=== PATIENT | male | born 1955 | race Caucasian/White ===

== ENCOUNTER 2018-05-27 02:57 | Observation (INO) ==
[2018-05-27] MEDS ORDERED: Morphine Inj 4 MG/ML Vial IV.PUSH ONE (03:27)
[2018-05-27] MEDS ORDERED: Sod Chloride 0.9% Inj 1,000 ML IV.CONT SCH ×2 (03:30→06:00)
[2018-05-27 03:38] LABS: Baso % (Auto) 0.4 % (0.0-2.0); Eos # (Auto) 0.1 th/mm3 (0.0-0.4); Eos % (Auto) 1.3 % (0.0-4.0); Hematocrit 43.4 % (39.0-51.0); Hemoglobin 14.6 gm/dL (13.0-17.0); Lymph # (Auto) 1.3 th/mm3 (1.0-4.8); Lymph % (Auto) 18.9 % (9.0-44.0); Mean Corpuscular HGB Conc 33.7 % (32.0-36.0); Mean Corpuscular Hemoglobin 30.3 pg (27.0-34.0); Mean Corpuscular Volume 89.9 fL (80.0-100.0); Mean Platelet Volume 8.1 fL (7.0-11.0); Mono # (Auto) 0.8 th/mm3 (0.0-0.9); Mono % (Auto) 11.2 % (0.0-8.0); Neut # (Auto) 4.9 th/mm3 (1.8-7.7); Neut % (Auto) 68.2 % (16.0-70.0); Platelet Count 186 th/mm3 (150-450); Red Blood Count 4.82 mil/mm3 (4.50-5.90); Red Cell Distribution Width 13.2 % (11.6-17.2); White Blood Count 7.1 th/mm3 (4.0-11.0)
[2018-05-27] MEDS ORDERED: HYDROmorphone PF Inj 2 MG/ML Vial IV.PUSH ONE (03:46)
[2018-05-27 03:47] LABS: Potassium 4.2 meq/L (3.5-5.1)
[2018-05-27 03:50] LABS: Carbon Dioxide 28.9 meq/L (21.0-32.0)
--- NOTE | 2018-05-27 03:56 | ED ---
HPI General Chief complaint: Urogenital-Male Stated complaint: hx kidney stone x 1 hr pain Source: patient and family Mode of arrival: ambulatory Limitations: no limitations History of Present Illness HPI Narrative: 62-year-old male presents to the emergency department by private transportation in the care of her spouse for complaint of severe left flank pain radiating to the left groin. Patient has known history of kidney stones. Patient was evaluated with CAT scan approximately 1 month ago at the recommendation of his urologist Dr. Dubose. Patient was seen by his urologist yesterday and told that his stones were stable although they had not moved and that he still had a 6 mm stone in patient has been doing well and remaining a symptom department he started having left flank pain which is progressively worsened. Pain is 10/10 intensity with nausea. Patient complains of severe pain has not noted hematuria has had no fever chills. Patient does have history of cardiac disease with previous stent placement as well as atrial fibrillation and Eliquis therapy. Patient also has history of hypertension dyslipidemia and thyroid dysfunction. Patient does not report any increased bruising or bleeding. Patient last took Eliquis Saturday morning. Patient denies any other concerns or complaints. MD Complaint: other (flank pain) Onset (ago): hour(s) Duration: constant Location: left flank Radiation: abdomen (LLQ) Severity: severe Quality: aching and dull Relieving factors: none Exacerbating factors: none other (kidney stones) Reports nausea/vomiting Related Data Sexually active: No Home Medications Medication Instructions Recorded Confirmed aspirin [Aspirin Childrens] 81 mg PO DAILY 05/27/18 05/27/18 levothyroxine 137 mcg PO DAILY 05/27/18 05/27/18 lisinopril 10 mg PO DAILY 05/27/18 05/27/18 metoprolol succinate 50 mg PO DAILY 05/27/18 05/27/18 rosuvastatin [Crestor] 40 mg PO DAILY 05/27/18 05/27/18 Allergies Allergy/AdvReac Type Severity Reaction Status Date / Time No Known Allergies Allergy Verified 05/27/18 03:22 Review of Systems ROS: all other systems reviewed are negative PMFSH History History Provided By: Patient (cad stents x 4 xarelto therapy kidney stones hypothyroid ds htn dyslipidemia) and Family Member Social History Social History Smoking Status: Never smoker How Often Do You Have a Drink Containing Alcohol: Never Recent Travel in [place] within the Last 8 Weeks: No Recent Out of Country Travel within the Last 8 Weeks: No Immunization History Tetanus Immunization: <5 Years Exam Narrative Exam Narrative: GENERAL: Well-nourished, well-developed patient. SKIN: Focused skin assessment warm/dry. HEAD: Normocephalic. EYES: No scleral icterus. No injection or drainage. NECK: Supple, trachea midline. No JVD or lymphadenopathy. CARDIOVASCULAR: Regular rate and rhythm without murmurs, gallops, or rubs. RESPIRATORY: Breath sounds equal bilaterally. No accessory muscle use. GASTROINTESTINAL: Abdomen soft, non-tender, nondistended. MUSCULOSKELETAL: No cyanosis, or edema. BACK: Nontender without obvious deformity. Left CVA tenderness. Course Reevaluation(s) Reevaluation #1: Patient's pain has decreased from 10/10 in intensity to 7/10 in intensity after morphine sulfate 3 mg IV and Dilaudid 1 mg IV along with Zofran 4 mg IV and IV fluid bolus; CT kidney stone protocol as identified left- sided 11 mm proximal UPJ stone as well as large 11 mm stone in the left kidney and smaller stone. Patient's case has been discussed with on-call urologist Dr. Villegas who request patient to be admitted to medicine service with consult to him and for the patient be kept n.p.o. for procedural intervention this morning. Case discussed with on-call medicine physician Dr. Baez who will accept patient for admission and consult will be placed to Dr. Villegas. Patient is kept n.p.o. Time: 05:57 Consultations Consultation #1: Dr Ira Villegas --urology; Dr Baez -- [facility] Initial Documented Vital Signs Temperature 98.1 F 05/27/18 03:07 Pulse Rate 58 L 05/27/18 03:07 Respiratory Rate 16 05/27/18 03:07 Blood Pressure 169/96 H 05/27/18 03:07 Pulse Oximetry 96 05/27/18 03:07 Last Documented Vital Signs Temperature 98.1 F 05/27/18 03:07 Pulse Rate 58 L 05/27/18 03:07 Respiratory Rate 16 05/27/18 03:07 Blood Pressure 169/96 H 05/27/18 03:07 Pulse Oximetry 96 05/27/18 03:07 Discharge Plan Discharge Disposition Patient Disposition: 30 Still Patient Discharge Condition Condition: Stable Discharge Details Diagnosis: Ureterolithiasis, Hydronephrosis concurrent with and due to calculi of kidney and ureter Physicians Team ED Provider: Yeimy Kearney Primary Care Provider: Sergey Cevallos Attending Provider: Radha Baez Status ED Status: Admitted Observation Patient Medical Decision Making MDM Narrative Medical decision making narrative: 62-year-old male with known history of stones presents for complaint of intractable left flank pain 10/10 intensity. Patient placed on monitor IV access obtained specimens collections of resulting CT abdomen pelvis kidney stone protocol ordered patient administered morphine sulfate 3 mg IV Pain remains unremitting given Dilaudid 1 mg IV Lab values grossly within normal range except for renal insufficiency BUN of 26 and creatinine of 1.70; CT abdomen and pelvis kidney stone protocol is remarkable for 11 mm proximal UPJ stone with hydronephrosis and hydroureter described as mild to moderate without extravasation and 2 additional stones in the left kidney.; This information is shared with the patient and spouse at bedside; patient states pain is still 7/10 in intensity down from 10/10 in intensity. Patient reports that it is noted to have O2 saturation on room air 89-91%. No additional pain medicine administered.; Discussed case with on- call urologist Dr. Villegas who recommends patient be admitted to medicine service kept n.p.o. in anticipation of procedure today. This is shared with the patient who is agreeable with the plan for procedural intervention. Medical Screen Exam Complete: Yes Emergency Medical Condition: Yes Differential Diagnosis Differential Diagnosis: Renal colic/obstructive uropathy, pyelonephritis, renal hematoma, pyelonephritis, abdominal aortic aneurysm, dissection, musculoskeletal pain Medical Records Medical records reviewed: Yes I reviewed the patient's medical records. none Lab Data Result diagrams: 05/27/18 03:34 05/27/18 03:34 Lab Results 05/27/18 05/27/18 05/27/18 Range/Units 03:34 03:34 05:37 CBC w Diff Auto diff final WBC 7.1 (4.0-11.0) th/mm3 RBC 4.82 (4.50-5.90) mil/mm3 Hgb 14.6 (13.0-17.0) gm/dL Hct 43.4 (39.0-51.0) % MCV 89.9 (80.0-100.0) fL MCH 30.3 (27.0-34.0) pg MCHC 33.7 (32.0-36.0) % RDW 13.2 (11.6-17.2) % Plt Count 186 (150-450) th/mm3 MPV 8.1 (7.0-11.0) fL Neut % (Auto) 68.2 (16.0-70.0) % Lymph % (Auto) 18.9 (9.0-44.0) % [place] % (Auto) 11.2 H (0.0-8.0) % Eos % (Auto) 1.3 (0.0-4.0) % Baso % (Auto) 0.4 (0.0-2.0) % Neut # (Auto) 4.9 (1.8-7.7) th/mm3 Lymph # (Auto) 1.3 (1.0-4.8) th/mm3 [place] # (Auto) 0.8 (0.0-0.9) th/mm3 Eos # (Auto) 0.1 (0.0-0.4) th/mm3 Baso # (Auto) 0.0 (0.0-0.2) th/mm3 WBC Differential . Differential Comment . Sodium 139 (136-145) meq/L Potassium 4.2 (3.5-5.1) meq/L Chloride 103 (98-107) meq/L Carbon Dioxide 28.9 (21.0-32.0) meq/L Anion Gap 7 (5-15) meq/L BUN 26 H (7-18) mg/dL Creatinine 1.70 H (0.60-1.30) mg/dL Estimated GFR 41 L (>89) mL/min Random Glucose 125 H (74-106) mg/dL Calcium 9.0 (8.5-10.1) mg/dL Urine Color Yellow (Yellw/Straw) Urine Clarity Slightly cloudy (Clear) Urine pH 5.0 (5.0-8.5) Ur Specific [place] Greater/equal 1.030 (1.002-1.035) Urine Protein Trace (Neg-Trace) mg/dL Urine Glucose (UA) Negative (Negative) mg/dL Urine Ketones Negative (Negative) mg/dL Urine Occult Blood Large H (Negative) Urine Nitrate Negative (Negative) Urine Bilirubin Negative (Negative) Urine Urobilinogen 0.2 (Less than 2) mg/dL Ur Leukocyte Esterase Negative (Negative) Urine RBC 51-189 H (0-3) /hpf Urine WBC 0-5 (0-5) /hpf Ur Squamous Epith Cells 0-5 (0-5) /hpf Micro UA Comment Culture not ind Imaging Data Radiologist's impression: Abdomen/Pelvis CT 05/27/18 03:27 CONCLUSION: 1. Left UPJ stone measuring 11 mm with obstruction. No perinephric fluid collections.
--- NOTE | 2018-05-27 05:04 | CT ---
EXAM DATE: 05/27/2018 4:20 AM EDT AGE/SEX: 62 years / Male INDICATIONS: Left flank pain. CLINICAL DATA: This is the patient's initial encounter. Patient reports that signs and symptoms have been present for 1 day and indicates a pain score of 7/10. MEDICAL/SURGICAL HISTORY: Renal calculi. None. RADIATION DOSE: 15.81 CTDI (mGy) COMPARISON: No prior exams available for comparison. TECHNIQUE: Multiple contiguous axial images were obtained through the abdomen. Images were obtained using multiple row detector helical technique. Using automated exposure control and adjustment of the mA and/or kV according to patient size, radiation dose was kept as low as reasonably achievable to o btain optimal diagnostic quality images. DICOM format image data is available electronically for rev iew and comparison. FINDINGS: Lower Lungs: The visualized lower lungs are clear. Liver: The liver has a homogeneous density without space-occupying lesion. There is no dilation of th e biliary tree. Gallbladder is unremarkable. Spleen: Homogeneous density without enlargement. Pancreas: Unremarkable without mass or calcification. Kidneys: An 11 mm stone is seen at the left UPJ. There is resulting mild to moderate hydronephrosis. 3 other stones seen involving the left kidney with the largest measuring 11 mm within the upper pole . No collecting system stones seen involving the right kidney. Adrenal Glands: Unremarkable. Aorta: The aorta and proximal iliac vessels are grossly unremarkable without aneurysmal dilation. Bowel/Mesentery: The bowel loops are grossly unremarkable. The cecum and sigmoid colon have a normal configuration. Abdominal Wall: Intact. Retroperitoneum: No evidence of adenopathy in the retrocrural, para-aortic, or deep pelvic regions. Bladder: Contours are smooth. Reproductive Organs: No abnormal masses or calcifications seen. Inguinal: The inguinal region is unremarkable without evidence of adenopathy. Bony Structures: Unremarkable. CONCLUSION: 1. Left UPJ stone measuring 11 mm with obstruction. No perinephric fluid collections. Electronically signed by: Bakari Lowry MD 05/27/2018 5:03 AM EDT
[2018-05-27] MEDS ORDERED: Acetaminophen 325 MG Tablet PO PRN ×2 (05:52→07:37)
[2018-05-27] MEDS ORDERED: Bisacodyl 10 MG Supp RECTAL PRN (05:52)
[2018-05-27 05:58] LABS: Bilirubin,Urine Negative (Negative); Clarity,Urine Slightly Cloudy (Clear); Color,Urine Yellow (Yellw/Straw); Glucose,Urine (UA) Negative (Negative); Leukocyte Esterase,Urine Negative (Negative); Nitrite,Urine Negative (Negative); Specific Gravity,Urine Greater/Equal 1.030 (1.002-1.035); Urobilinogen,Urine 0.2 mg/dL (Less than 2)
[2018-05-27 06:03] LABS: RBC,Urine 51-189 /hpf (0-3); Squamous Epithelial Cell,Urine 0-5 /hpf (0-5); WBC,Urine 0-5 /hpf (0-5)
[2018-05-27] MEDS ORDERED: Levothyroxine 112 MCG Tablet PO SCH (07:00)
[2018-05-27] MEDS ORDERED: HYDROmorphone PF Inj 1 MG/ML Ampul IV.PUSH PRN (07:37)
[2018-05-27] MEDS ORDERED: Naloxone Inj 0.4 MG/ML Vial IV.PUSH PRN (07:37)
[2018-05-27] MEDS: HYDROmorphone PF Inj 2 MG/ML Vial IV.PUSH PRN ×2 (07:56→12:18)
[2018-05-27] MEDS ORDERED: Senna/Docusate Sodium 8.6/50 MG Tablet PO SCH (09:00)
--- NOTE | 2018-05-27 10:37 | P.HP ---
History of Present Illness Primary Care Physician: Sergey Cevallos Chief Complaint: Left flank pain History of Present Illness: This is a pleasant 62-year-old male patient with a known medical history of kidney stones with lithotripsy, CAD with history of MA 4 and cardiac stent placements, paroxysmal atrial fibrillation on Eliquis, hyperlipidemia and hypothyroidism who presented to the ED with complaints of severe left flank pain. Patient states that he went to bed last evening around midnight and noticed that his stomach started to hurt, he states that he initially thought the pain was related to something he ate. He did have a bowel movement last evening which did relieve the pain some although over the course of the next couple hours his pain worsened and radiated to his left flank as well as his left groin. Patient does have a history of kidney stones with lithotripsy in the past. Patient follows with Dr. Herrera, and had a CT scan approximately 1 month ago, at that time he did have nonobstructing stones which were being monitored. Yesterday he did visit his urologist who referred him to the emergency department due to the worsening pain. Patient does admit to associated nausea with the pain. He rates the pain a 10 out of 10 at its worst on pain scale. Since presentation he does state that the pain has improved with IV narcotics. Denies hematuria. He denies any recent fevers, chills, cough, shortness breath, vomiting, diarrhea or dysuria. 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 He follows with gravity prospecting observer Dr. Meade. He does have a history of paroxysmal atrial fibrillation, on Eliquis. Last took his Eliquis on Saturday morning 05/26/2018. In abdominal CT was done in the ED showing a an 11 mm proximal UPJ stone with hydronephrosis as well as 2 additional stones in the left kidney. - Diagnosis (1) Ureterolithiasis (2) Hydronephrosis concurrent with and due to calculi of kidney and ureter Review of Systems All other systems reviewed negative except as stated in HPI PMFSH - History History Provided By: Patient - Medical History Medical History: Medical History (Last Updated 05/27/18 @ 11:35 by Ekta Jimenez) Anticoagulated by anticoagulation treatment History of kidney stones Hyperlipidemia Hypertension Hypothyroidism Paroxysmal atrial fibrillation - Surgical History Surgical History: Surgical History (Last Updated 05/27/18 @ 11:36 by Ekta Jimenez) History of lithotripsy History of urethral stent - Family History Family History: Family History (Last Updated 05/27/18 @ 11:35 by Ekta Jimenez) Mother Cardiovascular disease Father Colon cancer - Tobacco History Second Hand Smoke Exposure: No Smoking Status: Never smoker - Alcohol History How Often Do You Have a Drink Containing Alcohol: Never - Substance Use History Substance History: No History of Abuse - Travel History Recent Travel in the [place] Within the Last 8 Weeks: Yes Recent Travel Out of the Country Within the Last 8 Weeks: No - Immunization History Tetanus Immunization: <5 Years Medications and Allergies Active Medications: Active Medications Acetaminophen (Tylenol) 650 mg PO Q4H PRN PRN Reason: Temp > 100.4 Acetaminophen (Tylenol) 650 mg PO Q6HR PRN PRN Reason: PAIN SCALE 1 TO 2 Hydrocodone Bitart/Acetaminophen ([place] 10/325) 1 tab PO Q4H PRN PRN Reason: PAIN SCALE 6 TO 10 Last Admin: 05/27/18 10:19 Dose: 1 tab Hydrocodone Bitart/Acetaminophen ([place] 5/325) 1 tab PO Q4H PRN PRN Reason: PAIN SCALE 3 TO 5 Atorvastatin Calcium (Lipitor) 80 mg PO DAILY [facility] Last Admin: 05/27/18 09:14 Dose: 80 mg Bisacodyl (Dulcolax Supp) 10 mg RECTAL DAILY PRN PRN Reason: SEVERE CONSITIPATION Hydromorphone HCl (Dilaudid Pf Inj) 1 mg IV.PUSH Q3H PRN PRN Reason: BREAKTHROUGH Last Admin: 05/27/18 07:56 Dose: 1 mg Sodium Chloride (Ns Inj) 1,000 mls @ 100 mls/hr IV.CONT .Q10H [facility] Last Admin: 05/27/18 07:32 Dose: 100 mls/hr Lactulose (Lactulose Liq) 30 ml PO DAILY PRN PRN Reason: SEVERE CONSITIPATION Levothyroxine Sodium (Synthroid) 112 mcg PO DAILY@0700 [facility] Last Admin: 05/27/18 08:02 Dose: 112 mcg Levothyroxine Sodium (Synthroid) 25 mcg PO DAILY@0700 [facility] Last Admin: 05/27/18 08:02 Dose: 25 mcg Metoprolol Succinate (Toprol Xl) 50 mg PO DAILY [facility] Last Admin: 05/27/18 09:15 Dose: 50 mg Naloxone HCl (Narcan Inj) 0.4 mg IV.PUSH UNSCH PRN PRN Reason: SEE LABEL COMMENTS Ondansetron HCl (Zofran Inj) 4 mg IV.PUSH Q6H PRN PRN Reason: NAUSEA OR VOMITING Last Admin: 05/27/18 09:16 Dose: 4 mg Senna/Docusate Sodium ([place]-Colace) 1 tab PO BID [facility] Last Admin: 05/27/18 09:15 Dose: 1 tab Sennosides (Senokot) 17.2 mg PO Q12H PRN PRN Reason: Moderate Constipation Sodium Chloride (Ns Flush) 2 ml IV.FLUSH PRN PRN PRN Reason: FLUSH AFTER USING IV ACCESS Last Admin: 05/27/18 07:57 Dose: 2 ml Allergies Allergy/AdvReac Type Severity Reaction Status Date / Time No Known Allergies Allergy Verified 05/27/18 03:22 Home Medications Medication Instructions Recorded Confirmed Type aspirin [Aspirin Childrens] 81 mg PO DAILY 05/27/18 05/27/18 History levothyroxine 137 mcg PO DAILY 05/27/18 05/27/18 History lisinopril 10 mg PO DAILY 05/27/18 05/27/18 History metoprolol succinate 50 mg PO DAILY 05/27/18 05/27/18 History rosuvastatin [Crestor] 40 mg PO DAILY 05/27/18 05/27/18 History Exam Vital signs: Vital Signs 05/27/18 03:07 05/27/18 07:01 05/27/18 08:00 Temperature 98.1 F 97.8 F Pulse Rate 58 L 62 60 Respiratory Rate 16 16 19 Blood Pressure 169/96 H 156/93 H 157/90 H Pulse Oximetry 96 93 L 95 05/27/18 10:19 Temperature Pulse Rate Respiratory Rate 16 Blood Pressure Pulse Oximetry Intake & Output 05/26/18 05/27/18 05/27/18 18:59 06:59 18:59 Weight 108.4 kg Narrative: GENERAL: Well-developed, well-nourished patient in [facility]. SKIN: Warm and dry. No rash. HEAD: Normocephalic. Atraumatic. EYES: Pupils equal and round. No scleral icterus. No injection or drainage. ENT: No nasal bleeding or discharge. Mucous membranes pink and moist. NECK: Supple. Trachea midline. CARDIOVASCULAR: Regular rate and rhythm. S1, S2 noted. No murmur appreciated. RESPIRATORY: No accessory muscle use. Clear to auscultation. Breath sounds equal bilaterally. GASTROINTESTINAL: Abdomen soft, non-tender, nondistended. Normoactive bowel sounds x4. : Mild left CVA tenderness. MUSCULOSKELETAL: No obvious deformities. Extremities without clubbing, cyanosis , or edema. NEUROLOGICAL: Awake and alert. No obvious cranial nerve deficits. Motor grossly within normal limits. 5/5 muscle strength in bilateral upper and lower extremities. Normal speech. PSYCHIATRIC: Appropriate mood and affect; insight and judgment normal. Results - Labs CBC & Chem 7: 05/27/18 03:34 05/27/18 03:34 Labs: Laboratory Results - last 24 hr 05/27/18 05/27/18 05/27/18 03:34 03:34 03:34 CBC w Diff Auto diff final WBC 7.1 RBC 4.82 Hgb 14.6 Hct 43.4 MCV 89.9 MCH 30.3 MCHC 33.7 RDW 13.2 Plt Count 186 MPV 8.1 Neut % (Auto) 68.2 Lymph % (Auto) 18.9 [place] % (Auto) 11.2 H Eos % (Auto) 1.3 Baso % (Auto) 0.4 Neut # (Auto) 4.9 Lymph # (Auto) 1.3 [place] # (Auto) 0.8 Eos # (Auto) 0.1 Baso # (Auto) 0.0 WBC Differential . Differential Comment . Sodium 139 Potassium 4.2 Chloride 103 Carbon Dioxide 28.9 Anion Gap 7 BUN 26 H Creatinine 1.70 H Estimated GFR 41 L Random Glucose 125 H Calcium 9.0 Total Creatine Kinase 98 Urine Color Urine Clarity Urine pH Ur Specific [place] Urine Protein Urine Glucose (UA) Urine Ketones Urine Occult Blood Urine Nitrate Urine Bilirubin Urine Urobilinogen Ur Leukocyte Esterase Urine RBC Urine WBC Ur Squamous Epith Cells Micro UA Comment 05/27/18 05:37 CBC w Diff WBC RBC Hgb Hct MCV MCH MCHC RDW Plt Count MPV Neut % (Auto) Lymph % (Auto) [place] % (Auto) Eos % (Auto) Baso % (Auto) Neut # (Auto) Lymph # (Auto) [place] # (Auto) Eos # (Auto) Baso # (Auto) WBC Differential Differential Comment Sodium Potassium Chloride Carbon Dioxide Anion Gap BUN Creatinine Estimated GFR Random Glucose Calcium Total Creatine Kinase Urine Color Yellow Urine Clarity Slightly cloudy Urine pH 5.0 Ur Specific [place] Greater/equal 1.030 Urine Protein Trace Urine Glucose (UA) Negative Urine Ketones Negative Urine Occult Blood Large H Urine Nitrate Negative Urine Bilirubin Negative Urine Urobilinogen 0.2 Ur Leukocyte Esterase Negative Urine RBC 51-189 H Urine WBC 0-5 Ur Squamous Epith Cells 0-5 Micro UA Comment Culture not ind - Imaging Impressions Abdomen/Pelvis CT 05/27/18 03:27 CONCLUSION: 1. Left UPJ stone measuring 11 mm with obstruction. No perinephric fluid collections. Caprini VTE Risk Assessment Caprini VTE Risk Assessment: Moderate/High Risk (score >= 2) Caprini Risk Assessment Model: Point Value = 1 Point Value = 2 Point Value = 3 Point Value = 5 Age 41-60 Minor surgery BMI > 25 kg/m2 Swollen legs Varicose veins or History of unexplained or recurrent spontaneous Oral contraceptives or hormone replacement Sepsis (< 1 month) Serious lung disease, including pneumonia (< 1 month) Abnormal pulmonary function Acute myocardial infarction Congestive heart failure (< 1 month) History of inflammatory bowel disease Medical patient at bed rest Age 61-74 Arthroscopic surgery Major open surgery (> 45 min) Laparoscopic surgery (> 45 min) Malignancy Confined to bed (> 72 hours) Immobilizing plaster cast Central venous access Age >= 75 History of VTE Family history of VTE Factor V Leiden Prothrombin [id number] Lupus anticoagulant Anticardiolipin antibodies Elevated serum homocysteine Heparin-induced thrombocytopenia Other congenital or acquired thrombophilia Stroke (< 1 month) Elective arthroplasty Hip, pelvis, or leg fracture Acute spinal cord injury (< 1 month) Prophylaxis Regimen: Total Risk Factor Score Risk Level Prophylaxis Regimen 0-1 Low Early ambulation 2 Moderate Order ONE of the following: *Sequential Compression Device (SCD) *Heparin 5000 units SQ BID 3-4 Higher Order ONE of the following medications: *Heparin 5000 units SQ TID *Enoxaparin/Lovenox 40 mg SQ daily (WT < 150 kg, CrCl > 30 mL/min) *Enoxaparin/Lovenox 30 mg SQ daily (WT < 150 kg, CrCl > 10-29 mL/min) *Enoxaparin/Lovenox 30 mg SQ BID (WT < 150 kg, CrCl > 30 mL/min) AND/OR *Sequential Compression Device (SCD) 5 or more Highest Order ONE of the following medications: *Heparin 5000 units SQ TID (Preferred with Epidurals) *Enoxaparin/Lovenox 40 mg SQ daily (WT < 150 kg, CrCl > 30 mL/min) *Enoxaparin/Lovenox 30 mg SQ daily (WT < 150 kg, CrCl > 10-29 mL/min) *Enoxaparin/Lovenox 30 mg SQ BID (WT < 150 kg, CrCl > 30 mL/min) AND *Sequential Compression Device (SCD) Assessment and Plan - Assessment (1) Ureterolithiasis Code(s): N20.1 - Calculus of ureter Status: Acute (2) Hydronephrosis concurrent with and due to calculi of kidney and ureter Code(s): N13.2 - Hydronephrosis with renal and ureteral calculous obstruction Status: Acute - Plan This is a pleasant 62-year-old male patient with: Left nephrolithiasis Acute kidney injury secondary to above History of nephrolithiasis -Abdominal/pelvis CT reviewed showing left UPJ stone measuring 11 mm with obstruction. No perinephric fluid collections. -CBC and BMP reviewed, CBC essentially unremarkable. Patient does have acute kidney injury with creatinine 1.7 this is likely secondary to nephrolithiasis. -Patient denies any history of kidney disease in the past. Will continue IV fluid. Continue to monitor BMP. -UA is clean and negative for any infection. -Patient has been afebrile. No leukocytosis. -Pain control with IV narcotics as needed per pain scale. -Control nausea, Zofran available as needed. -Urology consulted, plan is to undergo a left ureter stent placement this afternoon around 3 PM. Consents are signed and in chart. -Further hospitalization and treatment plan will depend on neurology recommendations. Constipation, mild: Patient reports not having a bowel movement for [address] on regimen. History of CAD and cardiac stent placement History of paroxysmal atrial fibrillation Hypertension, chronic -Will continue home medications. -Hold chemical prophylaxis. -Continue cardiac telemetry, monitor for any arrhythmias. -Monitor blood pressure trends. Hyperlipidemia, chronic: Will continue home medications. DVT prophylaxis: SCDs. Hold chemical prophylaxis for now for anticipation of urological procedure.
[2018-05-27] MEDS ORDERED: Lidocaine PF 1% Inj 5 ML Syringe INFILTRATN ONE (12:00)
[2018-05-27] MEDS ORDERED: ceFAZolin 2 GM Premix Inj 2 GM/50 ML PIGGYBACK IV.SIG ONE (14:42)
[2018-05-27] MEDS ORDERED: fentaNYL Citrate Inj 100 MCG/2 ML Ampul ONE (14:47)
[2018-05-27] MEDS ORDERED: Metoprolol Tartrate 25 MG Tablet PO SCH (15:30)
[2018-05-27] MEDS ORDERED: ceFAZolin 2 GM IV; once IV.SIG SCH (15:30)
[2018-05-27] MEDS ORDERED: Chlorhexidine Gluconate 2% 1 Pack (2 Cloths) TOPICAL SCH (15:30)
--- NOTE | 2018-05-27 15:47 | MB ---
cc: Rigo Villegas DO DATE: 05/27/2018 HISTORY OF PRESENT ILLNESS: Mr. Fuentes is a pleasant 62-year-old male with a history of heart disease on Eliquis, status post CO x 4 in the past with cardiac stent placements with history of paroxysmal atrial fibrillation with hyperlipidemia and history of kidney stones, who presented in the ER with complaints of left-sided flank pain. CT scan revealed a 9 mm proximal left ureteral stone with hydronephrosis and then a large 8 mm stone within the left kidney. The patient is under the care of Dr. King. He does have a history of stones in the past and underwent cystoscopy with stent insertion as well as lithotripsies. PAST MEDICAL HISTORY: Includes heart disease, paroxysmal atrial fibrillation on Eliquis, hyperlipidemia, kidney stones, and hypothyroidism. PAST SURGICAL HISTORY: Lithotripsy, ureteral stent, cystoscopy. FAMILY HISTORY: Negative for heart disease and colon cancer. REVIEW OF SYSTEMS: Notes left side flank pain with abdominal pain and some nausea. No chest pain or shortness of breath. No diarrhea or constipation. No voiding complaints. Remaining review of systems were reviewed and were negative. PHYSICAL EXAMINATION: VITAL SIGNS: Temperature 97.5, heart rate 67, respiratory 20, blood pressure 157/90, oxygen saturation 96% on room air. GENERAL: Reveals a well-developed, well-nourished, 62-year-old male in no acute distress. HEENT: Normocephalic, atraumatic. Pupils equal, round, reactive to light. Extraocular movements intact. NECK: Supple. HEART: Regular rate and rhythm. LUNGS: Clear. ABDOMEN: Soft, nontender, nondistended. There is left CVA tenderness noted. GENITOURINARY: Normal phallus. Testes are descended. EXTREMITIES: Show no evidence of cyanosis, clubbing, or edema. LABORATORY DATA: White count 7.9, hemoglobin 14.6, hematocrit 43.4, platelet count 186. Sodium 139, potassium 4.2, chloride 103, CO2 28.9, BUN of 26, creatinine 1.7, glucose of 125. Urinalysis 51-189 red cells, 0-5 white cells. IMAGING: A 9 mm proximal left ureteral stone with 8 mm left kidney stone. ASSESSMENT: A 62-year-old male with a 9 mm left obstructing proximal ureteral stone with hydronephrosis. We will recommend cystoscopy, left double-J stent insertion. Continue n.p.o. Thank you for the consult and letting me participate in the care of this patient. DO MABEL Burroughs/naz , 03:33 PM , 03:41 PM
[2018-05-27] MEDS ORDERED: Sodium Chlor 0.9% Inj 500 ML IV.SIG SCH (16:00)
--- NOTE | 2018-05-27 16:19 | MP ---
cc: Rigo Villegas DO DATE OF OPERATION: 05/27/2018 PREOPERATIVE DIAGNOSIS: Left ureteral and renal stones with hydronephrosis. POSTOPERATIVE DIAGNOSIS: Left ureteral and renal stones with hydronephrosis. PROCEDURE PERFORMED: Cystoscopy with left retrograde pyelogram and left double-J stent insertion. SURGEON: Rigo Villegas DO. ANESTHESIA: General LMA. FLUIDS: 500 mL of crystalloid. ESTIMATED BLOOD LOSS: None. COMPLICATIONS: None. DRAINS: A 6-Ugandan 22-cm left double-J stent. He tolerated the procedure well and was transferred to recovery room in stable condition. INDICATIONS FOR PROCEDURE: Blu Fuentes is a 62-year-old male, who presented to the emergency room with 2 large stones involving the left kidney and ureter, causing obstruction and hydronephrosis. Decision was made to bring the patient to the operating room and undergo cystoscopy with left double-J stent insertion. Risks and benefits were discussed preoperatively, and the patient was willing to proceed. PROCEDURE IN DETAIL: The patient was brought to the operating room and identified by myself as Blu Fuentes. He was placed in the dorsal lithotomy position, prepped and draped in the usual sterile fashion, received preprocedure antibiotics, and general LMA anesthesia was administered. A 22-Ugandan cystoscope was inserted in the bladder. Pancystoscopy did not reveal any abnormalities. The left ureteral orifice was identified and a 5-Ugandan open-ended catheter was inserted into the left ureteral orifice, and a retrograde pyelogram was performed. A filling defect was noted in the proximal ureter with some hydronephrosis noted. The 0.035 sensor wire was then passed through the open-ended catheter up into the kidney with a good curl, and then the open-ended catheter was removed, leaving the wire in place. A 6-Ugandan 22-cm left double-J stent was placed with a good curl in the kidney and the bladder, and the patient tolerated the procedure well. The bladder was evacuated. He was awakened and transferred to the recovery room in stable condition. He will follow up in 1-2 weeks in the office to undergo left extracorporeal shockwave lithotripsy. He will need to hold his Eliquis preoperatively. Rigo Villegas DO SWT/sandra , 03:35 PM , 03:44 PM
[2018-05-27] MEDS ORDERED: Gentamicin/NS 80 mg Premix 100 ML IV.SIG ONE (16:30)
[2018-05-27 17:26] VITALS: BP 119/70; PULSE 53; RESP 19; TEMP 97.9; O2SAT 95
--- NOTE | 2018-05-27 23:42 | ECG ---
Date Performed: 05/27/2018 Time Performed: 14:48:48 PTAGE: 62 years EKG: Sinus rhythm INFERIOR MYOCARDIAL INFARCTION ABNORMAL ECG NO PREVIOUS TRACING DOCTOR: Rufino Maldonado Interpretating Date/Time 05/27/2018 23:41:42
--- NOTE | 2018-05-28 11:12 | XR ---
EXAM DATE: 05/28/2018 10:57 AM EDT AGE/SEX: 62 years / Male INDICATIONS: Left double J stent placement. CLINICAL DATA: This is the patient's initial encounter. Patient reports that signs and symptoms have been present for 2 days and indicates a pain score of Nonresponsive. MEDICAL/SURGICAL HISTORY: Renal calculi. None. COMPARISON: No prior exams available for comparison. FINDINGS: A single digital image is submitted, this revealing a ureteral stent extending up into upper pole col lecting system with contrast present and no evidence of hydronephrosis. CONCLUSION: Ureteral stent in place. Please refer to Dr. Villegas's operative report for additional details Electronically signed by: Abelardo Perez MD 05/28/2018 11:10 AM EDT
== END 2018-05-27 18:31 | disposition home or self-care (01) ==
LOC: PHED 02:57 → PHEDA 02:57 → PH3 02:57
PROVIDERS: ADMIT Internal Medicine; ATTEND Internal Medicine